=== PATIENT | male | born 1985 | race American Indian/Alaskan Native ===

== ENCOUNTER 2018-10-25 09:41 | Emergency (ER) | payer OTHER ==
[2018-10-25 09:54] VITALS: BP 136/86
[2018-10-25] MEDS ORDERED: IBUPROFEN PO ONE (10:34)
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
--- NOTE | 2018-10-25 11:23 | XRay Report ---
LEFT SHOULDER: History: Left shoulder pain. Routine views demonstrate normal bony and soft tissue structures with normal joint alignment of the shoulder. IMPRESSION: Normal study.
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
== END 2018-10-25 13:19 | disposition home or self-care (01) ==
LOC: ED 09:41
DX: S13.4XXA Sprain of ligaments of cervical spine, initial encounter (principal); S46.912A Strain of unspecified muscle, fascia and tendon at shoulder and upper arm level, left arm, initial encounter; R51 Headache; V89.2XXA Person injured in unspecified motor-vehicle accident, traffic, initial encounter; Y93.89 Activity, other specified; Y92.488 Other paved roadways as the place of occurrence of the external cause; Y99.8 Other external cause status
CPT/HCPCS: 70450; 72125; 99284